=== PATIENT | male | born 1940 | race Caucasian/White ===

== ENCOUNTER 2017-02-28 14:05 | Inpatient (IN) | payer MEDICARE ==
[2017-02-28] MEDS ORDERED: Acetaminophen 325 MG TAB PO PRN (15:09)
[2017-02-28] MEDS ORDERED: Mag-Al Plus 1200 MG/1200 MG/120 MG/30 ML UDCUP PO PRN (15:11)
[2017-02-28] MEDS: Warfarin Sodium 1 MG TAB PO SCH (17:25)
[2017-02-28] MEDS: Pravastatin Sodium 20 MG TAB PO SCH (20:24)
--- NOTE | 2017-03-01 01:47 | HP ---
DATE OF ADMISSION: admitted to [facility] on 02/28/2017. CHIEF COMPLAINT: Weakness. HISTORY OF PRESENT ILLNESS: Patient is a 76-year-old white male who has a history of hypertension, coronary artery disease, for which he underwent a stent in 2004 and severe mitral regurgitation. Mike phelan lives at his home with his and is independent of all his ADLs. Patient had been found to have mitral regurgitation that was severe and this has been monitored gradually, the severity of th e regurgitation increased and he was beginning to have shortness of breath with exertion. Patient h as been followed by his video intern Dr. Elder in [facility] in [place]. Patient was ref erred to cardiothoracic surgeon at [facility] Dr. Colt Willis. The surgeon recommende d that patient undergo a mitral valve replacement for the severe mitral regurgitation from ischemia with degeneration of the P2 leaflet of the valve. Patient was admitted to the hospital at [facility] in [place] on 02/20/2017 and had undergone a heart catheterization and found to have severe 3- vessel disease. Patient was taken to surgery on 02/20/2017 and underwent coronary artery bypass gra fting x3 and mitral valve replacement with a 31 mm Franky-Soto pericardial tissue valve biopr osthetic and ligation of the left atrial appendage. Patient was found to have not only the coronary artery disease, but ischemic mitral regurgitation and myxomatous degeneration of the mitral valve, prolapse of the P2 leaflet. Patient's postop course was complicated by cardiogenic failure, which w as expected and resolved, also by respiratory failure with hypoxemia that resolved and postop anemia requiring transfusion with 1 unit of packed RBCs, 4 units of platelets, and unit of fresh frozen pl asma. Patient had post-op delirium, which resolved and some dysphagia that had resolved. His overa ll course was one of the marked improvement. He required insulin for postop for a while, but he has been gradually weaned from this. He has been back on a regular diet. He has been ambulating short distances, but still very weak. He has not had any trouble with his breathing. Patient has been b rought to [facility] for admission to extended care for his general weakness an d deconditioning. Patient was interviewed along with his , Karly, and daughter Antonia. Patient was able to give me a good history of what had gone on. He is feeling overall much better. PAST HISTORY: Coronary artery disease, status post stents to the RCA x2 in 2004, coronary artery by pass x3 for triple vessel disease with left internal mammary artery to the LAD, saphenous vein graft to the right posterior descending artery and saphenous vein graft to the first diagonal on 02/21/20 17. Severe mitral regurgitation secondary to ischemia with myxomatous degeneration of the mitral va lve, when prolapse of the P2 leaflet, for which he underwent mitral valve replacement with Carpentie r-Soto pericardial tissue valve, bioprosthetic on 02/20/2017, ligation of the left atrial appenda ge on 02/20/2017. Patient also has hypertension, hypercholesterolemia, gastroesophageal reflux dise ase. Patient has had a cholecystectomy in 2001, postop anemia from recent cardiac surgery. Patient has had a colonoscopy that was unremarkable within the last 10 years. PRESENT MEDICINES: Hydrocodone/acetaminophen 5/325 one every 6 hours as needed for pain, acetaminop hen 650 mg every 6 hours as needed, potassium chloride 20 mEq daily, potassium gluconate 99 mg daily , metoprolol succinate 25 mg b.i.d., pantoprazole 40 mg daily, ascorbic acid 1000 mg daily, pravasta tin 40 mg at bedtime, Lasix 40 mg daily x7 days, then reduced to 20 mg daily for 7 days and then dis continue, this regimen was to be started on 02/28/2017, aspirin 81 mg daily, Coumadin 3 mg daily. ALLERGIES: No known allergies. REVIEW OF SYSTEMS: Patient said that he has not had any fever. He does not think his weight has ch anged. His appetite is usually good during this recent hospitalization, he said the appetite really was dependent upon what was served. EYES, EARS, NOSE AND THROAT: No complaint. PULMONARY: No shortness of breath. CARDIOVASCULAR: Patient said he has just a little sore in his anterior chest from his surgery. GASTROINTESTINAL: Patient has been a little constipated. GENITOURINARY: No complaints. MUSCULOSKELETAL: Patient has a little sore on the left leg where the saphenous grafts were taken. NEUROPSYCHIATRIC: Patient said the post-op delirium is all resolved. ADLs: Prior to the surgery, patient was independent of all his ADLs. SOCIAL HISTORY: Patient is and lives with his . He is [place]. HABITS: Alcohol, none. Tobacco, patient stopped smoking in 1966. CODE STATUS: FULL CODE. PHYSICAL EXAMINATION: GENERAL: Shows a very pleasant 76-year-old white male who is alert and oriented x3. VITAL SIGNS: His height is 72 inches, weight 158. His temperature is 99.2, pulse 89, O2 sat 100% o n room air, respirations 20, blood pressure 163/74. HEAD: Normocephalic. EYES: Pupils are equal, round, and reactive. Sclerae nonicteric. EARS: TMs are clear. NOSE: Normal. MOUTH AND THROAT: Normal. NECK: Carotids are equal and strong, no bruits. Thyroid not enlarged. LUNGS: Clear. HEART: Regular rate, no murmurs. CHEST: Anterior chest has a sternal splitting incision that is healing. There is no surrounding re dness. ABDOMEN: Soft with no organomegaly, nor areas of tenderness. EXTREMITIES: No edema. The incisions from the saphenous graft harvesting are healing well. NEUROLOGIC: Patient is alert and oriented x3 with generalized weakness, but no focal weakness. IMPRESSION: 1. Generalized weakness and deconditioning. A. Secondary to hospitalization at [facility] from 02/20/2017 until 02/28/2017 for co ronary artery bypass and mitral valve replacement. 2. Coronary artery disease. A. Status post stent x3 in 2004. B. Status post coronary artery bypass x3 on 02/20/2017 and ligation of the left atrial appendage. 3. Severe ischemic mitral regurgitation with prolapse of the P2 leaflet symptomatic. A. Status post mitral valve replacement with a 31 mm Franky-Soto pericardial tissue valve, bi oprosthetic on 02/20/2017. 4. Hypertension. 5. Postop anemia, status post transfusion with 1 unit of packed RBCs, fresh frozen plasma and plate lets. 6. Hypertension. 7. Hyperlipidemia. PLAN: Patient is admitted to the hospital for physical therapy in an effort to try to improve his g eneral strength, deconditioning and improve his functional capabilities to where he will be back to independent living. We will continue his present medicines. Patient is scheduled to gradually redu ce the furosemide. He is on Coumadin, which is to be continued for 3 months postop that is until 2016. We will recheck CBC, PT/INR, comprehensive metabolic panel in the morning.
[2017-03-01 08:20] LABS: ALT (SGPT) 25 U/L (8-55); AST (SGOT) 21 U/L (5-34); Albumin 3.1 g/dL (3.4-4.8); Alkaline Phosphatase 59 U/L (40-150); Anion Gap 12 mmol/L (10-20); BUN (Urea Nitrogen) 21 mg/dL (8.4-25.7); Bilirubin, Total 0.6 mg/dL (0.2-1.2); Calc. Creatinine Clearance 62 mL/min (70-130); Calcium 8.5 mg/dL (7.8-10.44); Carbon Dioxide 24 mmol/L (23-31); Cardiac Risk 2.4 (Less than 4.5); Chloride 108 mmol/L (98-107); Cholesterol 90 mg/dl (< 200 Desired); Estimated GFR-MDRD 70; Globulin 2.4 g/dL (2.4-3.5); Glucose 106 mg/dL (83-110); HDL Cholesterol 38 mg/dL (>60 Neg Risk); LDL Cholesterol, Calculated 40 mg/dL; Potassium 4.7 mmol/L (3.5-5.1); Protein, Total 5.5 g/dL (5.8-8.1); Sodium 139 mmol/L (136-145); Triglycerides 61 mg/dL (Less than 150)
[2017-03-01 08:23] LABS: #Eosinphils 0.4 thou/uL (0.0-0.7); #Lymphocytes 1.1 thou/uL (1.20-3.40); #Monocytes 0.5 thou/uL (0.11-0.59); #Neutrophils 5.5 thou/uL (1.40-6.50); %Basophils 0.6 % (0.0-1.0); %Eosinophils 5.2 % (0.0-10.0); %Lymphocytes 13.9 % (21.0-51.0); %Monocytes 6.6 % (0.0-10.0); %Neutrophils 73.7 % (42.0-75.0); Hemoglobin 8.9 g/dL (14.0-18.0); Mean Corpuscular HGB CONC 36.4 g/dL (32.0-36.0); Mean Corpuscular Hemoglobin 34.3 pg (27.0-31.0); Mean Corpuscular Volume 94.3 fl (80.0-94.0); Mean Platelet Volume 7.4 fL (7.4-10.4); Platelet Count 211 thou/uL (130-400); RBC Distribution Width 13.6 % (11.5-14.5); Red Blood Cell (RBC) Count 2.61 mill/uL (4.70-6.10); White Blood Cell (WBC) Count 7.5 thou/uL (4.8-10.8)
[2017-03-01] MEDS ORDERED: POTASSIUM GLUCONATE 99 MG PO SCH (09:00)
[2017-03-01] MEDS: Potassium Chloride 20 MEQ TAB PO SCH (09:04)
[2017-03-01] MEDS: Furosemide 20 MG TAB PO SCH (09:05)
[2017-03-01] MEDS: Ascorbic Acid 500 mg Chewable Tablet PO SCH (09:05)
[2017-03-01] MEDS: HYDROcodone/Acetaminophen 5/325 mg Tablet PO PRN (12:51)
[2017-03-01] MEDS: Warfarin Sodium 1 MG TAB PO SCH (16:43)
[2017-03-01] MEDS: Pravastatin Sodium 20 MG TAB PO SCH (20:54)
--- NOTE | 2017-03-02 06:57 | PRG ---
DATE OF SERVICE: 03/01/2017 SUBJECTIVE: Patient said he feels a little more rested today, said he did get up a couple times at night to urinate. He overall is feeling a little better. He ate just a little bit of breakfast, bu t he said he thought he was hungry, just need a lot. He is not having breathing difficulties. Pain seems to be well controlled. OBJECTIVE: The patient is sitting upright in his bed having eaten just small amount of his breakfas t. He appears comfortable and not in any distress. His vital signs shows a temperature of 98.7, pu lse 68, respirations 18, O2 sat 96% on room air, blood pressure 113/71. Lungs have some rales at th e bases that are coarse, probably from atelectasis. Remainder of the upper portion of the posterior lungs and anterior chest were all clear. Heart, regular rate. Extremities, no edema. LABORATORY DATA: Lab shows an H\T\H of 8.9 and 24.6, white cell count 7500 with 74% segs, 14% lymph ocytes, and platelet count of 211,000. Sodium 139, potassium 4.7, BUN 21, creatinine 1.03. GFR 70, glucose 114 this morning. His serum albumin 3.1. Cholesterol 90, triglycerides 61, LDL 40, HDL 38 , hemoglobin A1c is 5. ASSESSMENT: 1. Generalized weakness and deconditioning. A. Secondary to hospitalization at [facility] in [place] from 02/20/2017 until 02/28/2017 for coronary artery bypass and mitral valve replacement. B. a little improved as and not as tired as of 03/01/2017. 2. Coronary artery disease. A. Status post stent x3 in 2004. B. Status post coronary artery bypass x3 on 02/20/2017 and ligation of the left atrial appendag e. 3. Severe ischemic mitral regurgitation with prolapse of the P2 leaflet symptomatic. A. Status post mitral valve replacement with a 31 mm Franky-Soto pericardial tissue valv e, bioprosthetic on 02/20/2017. 4. Hypertension. A. Well-controlled as of 03/01/2017. 5. Postop anemia, status post transfusion with 1 unit of packed RBCs, fresh frozen plasma and plate lets. A. Hemoglobin 8.9 as of 03/01/2017 6. Hypertension. 7. Hyperlipidemia. A. Well-controlled as of 03/01/2017. PLAN: Patient has no evidence of any diabetes. Hemoglobin A1c was 5. Physical therapy will be wor stacy with the patient, encouraged him to get up for all of his meals since been a little more time o ut of bed using incentive spirometry at least 4 times a day. Continue present medicines.
[2017-03-02] MEDS: Furosemide 20 MG TAB PO SCH (08:22)
[2017-03-02] MEDS: Potassium Chloride 20 MEQ TAB PO SCH (08:22)
[2017-03-02] MEDS: Ascorbic Acid 500 mg Chewable Tablet PO SCH (08:23)
[2017-03-02] MEDS: HYDROcodone/Acetaminophen 5/325 mg Tablet PO PRN ×2 (10:50→17:14)
--- NOTE | 2017-03-02 13:48 | PRG ---
DATE OF SERVICE: 03/02/2017 SUBJECTIVE: The patient said he had a pretty good night. Yesterday, he walked a couple of times in the hallways. He was little tired afterward. He has had no trouble with his breathing. He says, he feels a little better today. OBJECTIVE: GENERAL: The patient is alert and oriented x3, appears very comfortable, in no distress. VITAL SIGNS: His temperature is 98.5, pulse 78, respirations 18, O2 saturation 98% on room air, blo od pressure 124/54. LUNGS: Clear. HEART: Regular rate. External incision healing well. EXTREMITIES: No edema. FBS yesterday morning, fasting 114, before supper was 125. This morning's is pending. ASSESSMENT: 1. Generalized weakness and deconditioning. A. Secondary to hospitalization at [facility] from 02/20/2017 until 02/28/2017 for coronary artery bypass and mitral valve replacement. B. Improved as of 03/02/2017. 2. Coronary artery disease. A. Status post stent x3 in 2004. B. Status post coronary artery bypass x3 on 02/20/2017 and ligation of the left atrial appendag e. 3. Severe ischemic mitral regurgitation with prolapse of the P2 leaflet symptomatic. A. Status post mitral valve replacement with a 31 mm Franky-Soto pericardial tissue valv e, bioprosthetic on 02/20/2017. 4. Hypertension. A. Controlled as of 03/02/2017. 5. Postop anemia, status post transfusion with 1 unit of packed RBCs, fresh frozen plasma and plate lets. A. Hemoglobin 8.9 as of 03/01/2017. 6. Hyperlipidemia. PLAN: Continue present care. Continue physical therapy.
[2017-03-02] MEDS: Warfarin Sodium 1 MG TAB PO SCH (17:08)
[2017-03-02] MEDS: Docusate 100 MG CAP PO SCH (18:07)
[2017-03-02] MEDS: Pravastatin Sodium 20 MG TAB PO SCH (21:08)
[2017-03-03 07:49] LABS: #Eosinphils 0.3 thou/uL (0.0-0.7); #Lymphocytes 1.2 thou/uL (1.20-3.40); #Monocytes 0.5 thou/uL (0.11-0.59); #Neutrophils 6.1 thou/uL (1.40-6.50); %Basophils 0.6 % (0.0-1.0); %Eosinophils 3.9 % (0.0-10.0); %Lymphocytes 14.8 % (21.0-51.0); %Monocytes 6.3 % (0.0-10.0); %Neutrophils 74.5 % (42.0-75.0); Hemoglobin 9.7 g/dL (14.0-18.0); Mean Corpuscular HGB CONC 35.4 g/dL (32.0-36.0); Mean Corpuscular Volume 93.2 fl (80.0-94.0); Mean Platelet Volume 6.6 fL (7.4-10.4); Platelet Count 289 thou/uL (130-400); RBC Distribution Width 13.6 % (11.5-14.5); Red Blood Cell (RBC) Count 2.94 mill/uL (4.70-6.10); White Blood Cell (WBC) Count 8.2 thou/uL (4.8-10.8)
[2017-03-03 07:55] LABS: Prothrombin Time 22.4 SEC (12.0-14.7)
[2017-03-03] MEDS: Ascorbic Acid 500 mg Chewable Tablet PO SCH (08:51)
[2017-03-03] MEDS: Furosemide 20 MG TAB PO SCH (08:51)
[2017-03-03] MEDS: Potassium Chloride 20 MEQ TAB PO SCH (08:51)
--- NOTE | 2017-03-03 09:59 | PRG ---
DATE OF SERVICE: 03/03/2017 SUBJECTIVE: The patient said he is feeling better, slept good last night, has little soreness, cinthya le tightness in the anterior chest, otherwise he thinks he is doing good, looking forward to [facility]. Appetite is improving. OBJECTIVE: GENERAL APPEARANCE: The patient is sitting up in a bedside chair. He is alert and oriented x3. Lo oks very comfortable. VITAL SIGNS: Temperature 98.4, pulse 79, respirations 20, O2 sat on room air 96%, and blood pressur e 113/55. FBS 108. LUNGS: Clear. HEART: Regular rate. Sternal incision is healing. No drainage or surrounding redness. LABORATORY DATA: His H\T\H is 9.7 and 27.4. White cell count 8200 with 75% segs, 15% lymphocytes, and platelet count of 289,000. His INR is 2.0. ASSESSMENT: 1. Generalized weakness and deconditioning. A. Secondary to hospitalization at [facility] from 02/20/2017 until 02/28/2017 for coronary artery bypass and mitral valve replacement. B. Improved as of 03/03/2017. 2. Coronary artery disease. A. Status post stent x3 in 2004. B. Status post coronary artery bypass x3 on 02/20/2017 and ligation of the left atrial appendag e. 3. Severe ischemic mitral regurgitation with prolapse of the P2 leaflet symptomatic. A. Status post mitral valve replacement with a 31 mm Franky-Soto pericardial tissue valv e, bioprosthetic on 02/20/2017. 4. Hypertension. A. Controlled as of 03/03/2017. 5. Postop anemia, status post transfusion with 1 unit of packed RBCs, fresh frozen plasma and plate lets. A. Hemoglobin 9.7 as of 03/03/2017. 6. Hyperlipidemia. PLAN: Continue present care. Continue physical therapy.
[2017-03-03] MEDS: Warfarin Sodium 1 MG TAB PO SCH (17:17)
[2017-03-03] MEDS ORDERED: Milk Of Magnesia 30 ML UDCUP PO SCH (20:45)
[2017-03-03] MEDS: Pravastatin Sodium 20 MG TAB PO SCH (20:51)
[2017-03-04] MEDS ORDERED: Bisacodyl 10 MG SUPP PR PRN (08:15)
[2017-03-04] MEDS: Furosemide 20 MG TAB PO SCH (09:25)
[2017-03-04] MEDS: Ascorbic Acid 500 mg Chewable Tablet PO SCH (09:25)
[2017-03-04] MEDS: Polyethylene Glycol 3350 17 GM Packet PO SCH (09:25)
[2017-03-04] MEDS: Docusate 100 MG CAP PO SCH (09:25)
[2017-03-04] MEDS: Potassium Chloride 20 MEQ TAB PO SCH (09:25)
--- NOTE | 2017-03-04 09:34 | PRG ---
DATE OF SERVICE: 03/04/2017 SUBJECTIVE: The patient said he is doing fine. He said he has had some trouble though with his bow els. He said he has not had a bowel movement for several days. He said he was given Milk of Magnes ia last night and this morning he was started on MiraLax. He said he did have a bowel movement this morning and stools were hard and small. He said he had to force this movement. He has not had any shortness of breath or chest pain and his therapy has been going well. OBJECTIVE: The patient is lying in bed. He looks very comfortable, in no distress. His temp is 98 .7, pulse 76, respirations 20, O2 sat 95% on room air, blood pressure 119/59. Lungs are clear. Hea rt, regular rate. Extremities, no edema. ASSESSMENT: 1. Generalized weakness and deconditioning. A. Secondary to hospitalization at [facility] in [place] from 02/20/2017 until 02/28/2017 for coronary artery bypass and mitral valve replacement. B. Improved as of 03/04/2017. 2. Coronary artery disease. A. Status post stent x3 in 2004. B. Status post coronary artery bypass x3 on 02/20/2017 and ligation of the left atrial appendag e. 3. Severe ischemic mitral regurgitation with prolapse of the P2 leaflet symptomatic. A. Status post mitral valve replacement with a 31 mm Franky-Soto pericardial tissue valv e, bioprosthetic on 02/20/2017. 4. Hypertension. A. Controlled as of 03/04/2017. 5. Postop anemia, status post transfusion with 1 unit of packed RBCs, fresh frozen plasma and plate lets. A. Hemoglobin 9.7 as of 03/03/2017. 6. Hyperlipidemia. 7. Constipation. PLAN: Continue present care. Continue physical therapy. MiraLax 17 grams in 8 ounces of water has been started daily, will also order Dulcolax suppository if needed.
[2017-03-04] MEDS: Warfarin Sodium 1 MG TAB PO SCH (17:44)
[2017-03-04] MEDS: Pravastatin Sodium 20 MG TAB PO SCH (20:55)
[2017-03-05 05:09] LABS: #Eosinphils 0.3 thou/uL (0.0-0.7); #Lymphocytes 1.2 thou/uL (1.20-3.40); #Monocytes 0.5 thou/uL (0.11-0.59); #Neutrophils 5.5 thou/uL (1.40-6.50); %Basophils 0.4 % (0.0-1.0); %Eosinophils 3.9 % (0.0-10.0); %Monocytes 6.7 % (0.0-10.0); Mean Corpuscular HGB CONC 34.2 g/dL (32.0-36.0); Mean Corpuscular Hemoglobin 31.7 pg (27.0-31.0); Mean Corpuscular Volume 92.8 fl (80.0-94.0); Mean Platelet Volume 6.9 fL (7.4-10.4); Platelet Count 320 thou/uL (130-400); RBC Distribution Width 13.5 % (11.5-14.5); Red Blood Cell (RBC) Count 3.15 mill/uL (4.70-6.10); White Blood Cell (WBC) Count 7.6 thou/uL (4.8-10.8)
[2017-03-05 05:15] LABS: INR-International Normal Ratio 1.6; Prothrombin Time 18.9 SEC (12.0-14.7)
[2017-03-05 05:23] LABS: Anion Gap 14 mmol/L (10-20); BUN (Urea Nitrogen) 27 mg/dL (8.4-25.7); Calc. Creatinine Clearance 65 mL/min (70-130); Calcium 8.8 mg/dL (7.8-10.44); Carbon Dioxide 24 mmol/L (23-31); Chloride 105 mmol/L (98-107); Estimated GFR-MDRD 74; Glucose 110 mg/dL (83-110); Potassium 4.2 mmol/L (3.5-5.1); Sodium 139 mmol/L (136-145)
[2017-03-05] MEDS: Ascorbic Acid 500 mg Chewable Tablet PO SCH (08:49)
[2017-03-05] MEDS: Furosemide 20 MG TAB PO SCH (08:50)
[2017-03-05] MEDS: Potassium Chloride 20 MEQ TAB PO SCH (08:50)
[2017-03-05] MEDS: Polyethylene Glycol 3350 17 GM Packet PO SCH (08:51)
[2017-03-05] MEDS: HYDROcodone/Acetaminophen 5/325 mg Tablet PO PRN ×2 (08:56→16:30)
--- NOTE | 2017-03-05 09:51 | PRG ---
DATE OF SERVICE: 03/05/2017 SUBJECTIVE: The patient said he is doing better with his therapy. He is walking a little further, getting up easier on his own. The appetite is coming back. He said is a little sore through the an terior chest, otherwise doing well. OBJECTIVE: The patient is lying in bed, was able to get up in a chair on his own. 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 Lungs are clear. Heart, regular rate . Incision healing well. Extremities; no edema. His lab shows an H\T\H of 10 and 29.3, WBC count 7600 with 73% segs, 16% lymphocytes, and platelet c ount of 320,000. Sodium 139, potassium 4.2, BUN 27, creatinine 0.98, glucose 110. INR 1.6. ASSESSMENT: 1. Generalized weakness and deconditioning. A. Secondary to hospitalization at [facility] from 02/20/2017 until 02/28/2017 for coronary artery bypass and mitral valve replacement. B. Improved as of 03/05/2017. 2. Coronary artery disease. A. Status post stent x3 in 2004. B. Status post coronary artery bypass x3 on 02/20/2017 and ligation of the left atrial appendag e. 3. Severe ischemic mitral regurgitation with prolapse of the P2 leaflet symptomatic. A. Status post mitral valve replacement with a 31 mm Franky-Soto pericardial tissue valv e, bioprosthetic on 02/20/2017. 4. Hypertension. A. Controlled as of 03/04/2017. 5. Postop anemia, status post transfusion with 1 unit of packed RBCs, fresh frozen plasma and plate lets. A. Hemoglobin up to 10.0 as of 03/05/2017. 6. Hyperlipidemia. 7. Constipation. PLAN: The patient's strength is gradually improving. His appetite is improving. Weight is stable. His constipation seems to be controlled. His INR dropped a little bit. He is presently on Coumad in 3 mg a day. We will increase his Coumadin to 5 mg on Wednesdays and Saturdays, he will remain on 3 mg the other 5 days. We will continue to monitor PT and INR.
[2017-03-05] MEDS ORDERED: Warfarin Sodium 5 MG TAB PO SCH (17:00)
[2017-03-05] MEDS: Pravastatin Sodium 20 MG TAB PO SCH (20:31)
[2017-03-06 05:15] LABS: INR-International Normal Ratio 1.6; Prothrombin Time 19.1 SEC (12.0-14.7)
[2017-03-06] MEDS: Ascorbic Acid 500 mg Chewable Tablet PO SCH (08:56)
[2017-03-06] MEDS: Furosemide 20 MG TAB PO SCH (08:56)
[2017-03-06] MEDS: Potassium Chloride 20 MEQ TAB PO SCH (08:57)
[2017-03-06] MEDS: Polyethylene Glycol 3350 17 GM Packet PO SCH (08:57)
--- NOTE | 2017-03-06 10:18 | PRG ---
DATE OF SERVICE: 03/06/2017 SUBJECTIVE: The patient is doing better. He is doing more on physical therapy. He is not having b reathing trouble. Chest feels good. He was asking for a regular diet, but no added salt, so he can have his juárez and sugar. OBJECTIVE: GENERAL APPEARANCE: The patient is sitting up in a bedside chair. He is alert and appears in no di stress. VITAL SIGNS: Temperature 98.6, pulse 76, respirations 18, O2 sat 96%, and blood pressure 110/56. LUNGS: Clear. HEART: Regular rate. EXTREMITIES: No edema. LABORATORY DATA: His INR is 1.6. ASSESSMENT: 1. Generalized weakness and deconditioning. A. Secondary to hospitalization at [facility] from 02/20/2017 until 02/28/2017 for coronary artery bypass and mitral valve replacement. B. Improved as of 03/06/2017. 2. Coronary artery disease. A. Status post stent x3 in 2004. B. Status post coronary artery bypass x3 on 02/20/2017 and ligation of the left atrial appendag e. 3. Severe ischemic mitral regurgitation with prolapse of the P2 leaflet symptomatic. A. Status post mitral valve replacement with a 31 mm Franky-Soto pericardial tissue valv e, bioprosthetic on 02/20/2017. 4. Hypertension. A. Controlled as of 03/06/2017. 5. Postop anemia, status post transfusion with 1 unit of packed RBCs, fresh frozen plasma and plate lets. A. Hemoglobin up to 10.0 as of 03/05/2017. 6. Hyperlipidemia. 7. Constipation. A. Controlled as of 03/06/2017. PLAN: Continue physical therapy. We will place patient on a regular diet, no added salt. His INR is not therapeutic. We will increase his Coumadin to 5 mg on Friday, , Friday, and y and 3 mg on MDF. Recheck PT/INR in the morning. The patient tentatively looking to go home [facility].
[2017-03-06] MEDS ORDERED: Acetaminophen 325 MG TAB PO PRN (12:51)
[2017-03-06] MEDS ORDERED: Warfarin Sodium 5 MG TAB PO SCH (17:00)
[2017-03-06] MEDS ORDERED: Warfarin Sodium 1 MG TAB PO SCH (17:00)
[2017-03-06] MEDS: Pravastatin Sodium 20 MG TAB PO SCH (21:24)
[2017-03-07 07:49] LABS: INR-International Normal Ratio 1.6; Prothrombin Time 19.3 SEC (12.0-14.7)
--- NOTE | 2017-03-07 10:26 | PRG ---
DATE OF SERVICE: 03/07/2017 SUBJECTIVE: The patient said he is doing better, had a good night. He is just sore in the muscles of the left upper anterior chest. He is using a moist heat on the anterior chest in that area, it d oes seem to help. The patient and his talked about going home and starting outpatient surgery versus continuing inpatient physical therapy. At this time they are most comfortable staying within patient surgery at least for a few more days. OBJECTIVE: The patient is sitting up in the bedside chair. He is alert and appears very comfortabl e and in no distress. His temperature is 97.5, pulse 96, respirations 16, O2 sat 76% on room air, b lood pressure 119/63. His lungs are clear. Heart, regular rate. Anterior sternal incision healing well. The patient is a little sore to palpation in the left pectoralis major muscle. Extremities, no edema. His INR is still 1.6. ASSESSMENT: 1. Generalized weakness and deconditioning. A. Secondary to hospitalization at [facility] from 02/20/2017 until 02/28/2017 for coronary artery bypass and mitral valve replacement. B. Improved as of 03/07/2017. 2. Coronary artery disease. A. Status post stent x3 in 2004. B. Status post coronary artery bypass x3 on 02/20/2017 and ligation of the left atrial appendag e. 1. Healing well as of 03/07/2017. 3. Severe ischemic mitral regurgitation with prolapse of the P2 leaflet symptomatic. A. Status post mitral valve replacement with a 31 mm Franky-Soto pericardial tissue valv e, bioprosthetic on 02/20/2017. 4. Hypertension. A. Controlled as of 03/07/2017. 5. Postop anemia, status post transfusion with 1 unit of packed RBCs, fresh frozen plasma and plate lets. A. Hemoglobin up to 10.0 as of 03/05/2017. 6. Hyperlipidemia. 7. Constipation. A. Controlled as of 03/06/2017. PLAN: The patient's INR is still not therapeutic. We will increase his Coumadin to 5 mg daily, and continue to check on the PT/INR. Continue physical therapy. The patient due to see his Cardiologi stDr. Elder at [facility] in [place] on Friday03/11/2017 and move discharge to [facility] 03/12/2017.
[2017-03-07] MEDS: Furosemide 20 MG TAB PO SCH (10:44)
[2017-03-07] MEDS: Ascorbic Acid 500 mg Chewable Tablet PO SCH (10:44)
[2017-03-07] MEDS: Polyethylene Glycol 3350 17 GM Packet PO SCH (10:45)
[2017-03-07] MEDS: Potassium Chloride 20 MEQ TAB PO SCH (10:45)
[2017-03-07] MEDS ORDERED: Warfarin Sodium 1 MG TAB PO SCH (17:00)
[2017-03-07] MEDS: Warfarin Sodium 5 MG TAB PO SCH (17:16)
[2017-03-07] MEDS: HYDROcodone/Acetaminophen 5/325 mg Tablet PO PRN (17:17)
[2017-03-07] MEDS: Pravastatin Sodium 20 MG TAB PO SCH (20:46)
[2017-03-08 07:42] LABS: INR-International Normal Ratio 1.9; Prothrombin Time 21.7 SEC (12.0-14.7)
[2017-03-08] MEDS: Furosemide 20 MG TAB PO SCH (09:36)
[2017-03-08] MEDS: Polyethylene Glycol 3350 17 GM Packet PO SCH (09:36)
[2017-03-08] MEDS: Ascorbic Acid 500 mg Chewable Tablet PO SCH (09:36)
[2017-03-08] MEDS: Potassium Chloride 20 MEQ TAB PO SCH (09:37)
[2017-03-08] MEDS: Warfarin Sodium 5 MG TAB PO SCH (17:20)
[2017-03-08] MEDS: Pravastatin Sodium 20 MG TAB PO SCH (20:40)
[2017-03-08] MEDS: HYDROcodone/Acetaminophen 5/325 mg Tablet PO PRN (20:41)
[2017-03-09] MEDS: Potassium Chloride 20 MEQ TAB PO SCH (08:59)
[2017-03-09] MEDS: Ascorbic Acid 500 mg Chewable Tablet PO SCH (08:59)
[2017-03-09] MEDS: Polyethylene Glycol 3350 17 GM Packet PO SCH (09:01)
[2017-03-09] MEDS: Furosemide 20 MG TAB PO SCH (09:03)
--- NOTE | 2017-03-09 14:12 | PRG ---
DATE OF SERVICE: 03/09/2017 SUBJECTIVE: The patient said he is doing good. He is walking more. He is to transfer on [facility]. He has asked for a pass this morning, so he can go to [facility]. OBJECTIVE: GENERAL: The patient is sitting up in a bedside chair, he is alert and appears very comfortable and in no distress. VITAL SIGNS: Shows a temperature of 98.4, pulse 78, respirations 17. His O2 sat 98% on room air, b lood pressure 121/65. LUNGS: Clear. HEART: Regular rate. EXTREMITIES: No edema. LABORATORY DATA: His INR yesterday was 1.9. ASSESSMENT: 1. Generalized weakness and deconditioning. A. Secondary to hospitalization at [facility] from 02/20/2017 until 02/28/2017 for coronary artery bypass and mitral valve replacement. B. Improved as of 03/09/2017. 2. Coronary artery disease. A. Status post stent x3 in 2004. B. Status post coronary artery bypass x3 on 02/20/2017 and ligation of the left atrial appendag e. 1. Healing well as of 03/09/2017. 3. Severe ischemic mitral regurgitation with prolapse of the P2 leaflet symptomatic. A. Status post mitral valve replacement with a 31 mm Franky-Soto pericardial tissue valv e, bioprosthetic on 02/20/2017. 4. Hypertension. A. Controlled as of 03/09/2017. 5. Postop anemia, status post transfusion with 1 unit of packed RBCs, fresh frozen plasma and plate lets. A. Hemoglobin up to 10.0 as of 03/05/2017. 6. Hyperlipidemia. 7. Constipation. A. Controlled as of 03/09/2017. PLAN: The patient's INR is coming back to therapeutic at 1.9 yesterday. We will recheck this tomor row. Patient's furosemide per supportability engineer's instructions reduced to 20 mg daily. Continue physica l therapy.
[2017-03-09] MEDS: Warfarin Sodium 5 MG TAB PO SCH (17:22)
[2017-03-09] MEDS: Pravastatin Sodium 20 MG TAB PO SCH (20:24)
[2017-03-10 06:37] LABS: #Basophils 0.1 thou/uL (0.0-0.2); #Eosinphils 0.3 thou/uL (0.0-0.7); #Lymphocytes 1.4 thou/uL (1.20-3.40); #Monocytes 0.5 thou/uL (0.11-0.59); #Neutrophils 3.3 thou/uL (1.40-6.50); %Basophils 1.2 % (0.0-1.0); %Eosinophils 5.4 % (0.0-10.0); %Lymphocytes 24.7 % (21.0-51.0); %Monocytes 9.4 % (0.0-10.0); %Neutrophils 59.2 % (42.0-75.0); Hemoglobin 10.9 g/dL (14.0-18.0); Mean Corpuscular HGB CONC 35.8 g/dL (32.0-36.0); Mean Corpuscular Hemoglobin 32.5 pg (27.0-31.0); Mean Corpuscular Volume 90.8 fl (80.0-94.0); Mean Platelet Volume 6.3 fL (7.4-10.4); Platelet Count 293 thou/uL (130-400); RBC Distribution Width 13.1 % (11.5-14.5); Red Blood Cell (RBC) Count 3.36 mill/uL (4.70-6.10); White Blood Cell (WBC) Count 5.6 thou/uL (4.8-10.8)
[2017-03-10 06:45] LABS: Anion Gap 12 mmol/L (10-20); BUN (Urea Nitrogen) 25 mg/dL (8.4-25.7); Calc. Creatinine Clearance 59 mL/min (70-130); Carbon Dioxide 25 mmol/L (23-31); Chloride 109 mmol/L (98-107); Estimated GFR-MDRD 66; Glucose 106 mg/dL (83-110); Potassium 4.5 mmol/L (3.5-5.1); Sodium 141 mmol/L (136-145)
[2017-03-10 06:48] LABS: INR-International Normal Ratio 2.2; Prothrombin Time 24.1 SEC (12.0-14.7)
[2017-03-10] MEDS: Furosemide 20 MG TAB PO SCH (08:54)
[2017-03-10] MEDS: Ascorbic Acid 500 mg Chewable Tablet PO SCH (08:54)
[2017-03-10] MEDS: Potassium Chloride 20 MEQ TAB PO SCH (08:54)
[2017-03-10] MEDS: Polyethylene Glycol 3350 17 GM Packet PO SCH (08:55)
--- NOTE | 2017-03-10 09:10 | PRG ---
DATE OF SERVICE: 03/10/2017 SUBJECTIVE: The patient said he is a little tired today. Yesterday he had taken a pass and gone to spiritism, left spiritism early because he was pretty fatigued with the increased activity. OBJECTIVE: GENERAL APPEARANCE: The patient is sitting up in a chair, appears in no distress. VITAL SIGNS: Shows temperature 98.7, pulse 76, respirations 16, O2 sat 95% on room air, and blood p ressure 122/60. LUNGS: Clear. HEART: Regular rate. EXTREMITIES: No edema. LABORATORY DATA: Shows an H\T\H of 10.9 and 30.5, white cell count 5600 with 59% segs, 25% lymphocy deborah, and platelet count of 293,000. Sodium 141, potassium 4.5, BUN 25, creatinine 1.09, GFR is 66, glucose 106. INR 2.2. ASSESSMENT: 1. Generalized weakness and deconditioning. A. Secondary to hospitalization at [facility] from 02/20/2017 until 02/28/2017 for coronary artery bypass and mitral valve replacement. B. Improved as of 03/10/2017. 2. Coronary artery disease. A. Status post stent x3 in 2004. B. Status post coronary artery bypass x3 on 02/20/2017 and ligation of the left atrial appendag e. 1. Healing well as of 03/10/2017. 3. Severe ischemic mitral regurgitation with prolapse of the P2 leaflet symptomatic. A. Status post mitral valve replacement with a 31 mm Franky-Soto pericardial tissue valv e, bioprosthetic on 02/20/2017. 4. Hypertension. A. Controlled as of 03/10/2017. 5. Postop anemia, status post transfusion with 1 unit of packed RBCs, fresh frozen plasma and plate lets. A. Hemoglobin up to 10.9 as of 03/10/2017. 6. Hyperlipidemia. 7. Constipation. A. Controlled as of 03/10/2017. PLAN: Patient's INR is now therapeutic. He is making gradual progress with his therapy. Tomorrow he will be given a pass to go see his conference planner in [place], Dr. Elder. There will have a repeat echo cardiogram. He overall is feeling better and targeting a probable discharge on Friday, 7.
[2017-03-10] MEDS: Warfarin Sodium 5 MG TAB PO SCH (17:05)
[2017-03-10] MEDS: Pravastatin Sodium 20 MG TAB PO SCH (20:34)
[2017-03-11 03:18] VITALS: BMI 20.9
[2017-03-11] MEDS: Potassium Chloride 20 MEQ TAB PO SCH (08:41)
[2017-03-11] MEDS: Furosemide 20 MG TAB PO SCH (08:42)
[2017-03-11] MEDS: Polyethylene Glycol 3350 17 GM Packet PO SCH (08:42)
[2017-03-11] MEDS: Ascorbic Acid 500 mg Chewable Tablet PO SCH (08:42)
--- NOTE | 2017-03-11 11:27 | PRG ---
DATE OF SERVICE: 03/11/2017 SUBJECTIVE: The patient said he is doing good this morning. 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 He is anticipating discharge tomorrow. Overall, he thinks he is doing good. OBJECTIVE: The patient is lying in bed, he is alert, appears comfortable, in no distress. His temp 97.7, pulse 73, respirations 16, O2 saturation 97%, blood pressure 111/67. Lungs are clear. Heart , regular rate. Extremities, no edema. ASSESSMENT: 1. Generalized weakness and deconditioning. A. Secondary to hospitalization at [facility] in [place] from 02/20/2017 until 02/28/2017 for coronary artery bypass and mitral valve replacement. B. Improved as of 03/11/2017. 2. Coronary artery disease. A. Status post stent x3 in 2004. B. Status post coronary artery bypass x3 on 02/20/2017 and ligation of the left atrial appendag e. 1. Healing well as of 03/11/2017. 3. Severe ischemic mitral regurgitation with prolapse of the P2 leaflet symptomatic. A. Status post mitral valve replacement with a 31 mm Franky-Soto pericardial tissue valv e, bioprosthetic on 02/20/2017. 4. Hypertension. A. Controlled as of 03/11/2017. 5. Postop anemia, status post transfusion with 1 unit of packed RBCs, fresh frozen plasma and plate lets. A. Hemoglobin up to 10.9 as of 03/10/2017. 6. Hyperlipidemia. 7. Constipation. A. Controlled as of 03/10/2017. PLAN: Continue physical therapy. 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 Anticipate discharge tomorrow. We will continue physical therapy today and tomorrow and then will arrange for outpatient.
[2017-03-11] MEDS: Warfarin Sodium 5 MG TAB PO SCH (17:13)
[2017-03-11] MEDS: Pravastatin Sodium 20 MG TAB PO SCH (20:34)
[2017-03-12] MEDS: Furosemide 20 MG TAB PO SCH (08:29)
[2017-03-12] MEDS: Ascorbic Acid 500 mg Chewable Tablet PO SCH (08:29)
[2017-03-12] MEDS: Polyethylene Glycol 3350 17 GM Packet PO SCH (08:30)
[2017-03-12] MEDS: Potassium Chloride 20 MEQ TAB PO SCH (08:30)
--- NOTE | 2017-03-12 09:16 | DIS ---
FINAL DIAGNOSES: 1. Generalized weakness and deconditioning. A. Secondary to hospitalization at [facility] in [place] from 02/20/2017 until 02/28/2017 for coronary artery bypass and mitral valve replacement. B. Continued improvement as of 03/12/2017. 2. Coronary artery disease. A. Status post stent x3 in 2004. B. Status post coronary artery bypass x3 on 02/20/2017 and ligation of the left atrial appendag e. 1. Healing well as of 03/12/2017. 3. Severe ischemic mitral regurgitation with prolapse of the P2 leaflet symptomatic. A. Status post mitral valve replacement with a 31 mm Franky-Soto pericardial tissue valv e, bioprosthetic on 02/20/2017. 4. Hypertension. A. Controlled as of 03/12/2017. 5. Postop anemia, status post transfusion with 1 unit of packed RBCs, fresh frozen plasma and plate lets. A. Hemoglobin up to 10.9 as of 03/10/2017. 6. Hyperlipidemia. 7. Constipation. A. Controlled as of 03/10/2017. REASON FOR ADMISSION: The patient is a 76-year-old white male who has a history of hypertension, co ronary artery disease for which he underwent a stent in 2004 and has severe mitral regurgitation. T his had progressively become symptomatic with some shortness of breath with exertion. His cardiolog ist is Dr. Elder of [place] has been following him and has seen further and progressive severi ty of the upper mitral regurgitation. He was referred to Dr. Colt Willis, cardiovascular s urgeon at [facility] and his further evaluation showed severe mitral regurgitation fr om ischemia with degeneration of the P2 leaflet of the valve. The patient was hospitalized at [facility] and on 02/20/2017 he underwent heart catheterization and was found to have severe 3-vesse l disease. As a consequence, he underwent a bypass grafting x3 and a mitral valve replacement with a 31 mm Arceo-Soto pericardial tissue valve bioprosthetic and ligation of the left atrial jorgito endage. The patient's postop course was complicated by some cardiogenic failure which was expected that resolved and respiratory failure with hypoxemia that quickly resolved. He had a postop anemia that required transfusion of 4 units of packed RBCs. The patient had immediate postoperative deliri um that resolved and some mild dysphagia which resolved. He was discharged and transferred to [facility] on 02/28/2017, admitted for a nursing home facility for continued physic al therapy. HOSPITAL COURSE: The patient's hospital course has been one of gradual progressive improvement. He has worked with physical therapy and has made excellent progress. He has been walking up to 275 fe et twice a day. He is transferring independently. His lungs have remained clear. His postop anemi a, has improved. His last hemoglobin on 03/10/2017 was 10.9 with a platelet count of 293,000. His sodium on 03/10/2017 was 141, potassium 4.5, BUN 25, creatinine 1.09 with a GFR of 66 and glucose 10 6. He has been placed on Coumadin for a 3 month, postop period and then this will be stopped. His Coumadin was adjusted requiring 5 mg daily, his PT/INR on 03/10/2017 was 2.2, for 03/12/2017 is pend ing. His furosemide initially was started at 40 mg a day and after a week this was reduced to 20 mg and after another 2 weeks this will be stopped. He has not required any of his pain medication oth er than Tylenol. He had some trouble with constipation that was managed with MiraLax. His conditio n was one of great progress. He was evaluated at [facility] as an outpatient on 03/11/2017 wit h an echocardiogram, chest x-ray and lab studies and will be seen next week by his ruby rails developer to r eview these studies. By 03/12/2017 his condition was doing very well and was such that it is felt t hat he can now be managed at home. We will arrange for him to undergo outpatient physical therapy. DISPOSITION: DIET: Regular diet, no added salt. ACTIVITIES: Gradually increase activities. Encouraged him to walk. We will arrange for outpatient physical therapy. Weight restriction less than 20 pounds for the first 6 weeks postop. MEDICATIONS: Acetaminophen 325 mg 2 q.i.d. as needed for pain, ascorbic acid 1000 mg daily, aspirin 81 mg daily, furosemide 20 mg daily for 1 week, then stop. MiraLax 17 grams in 8 ounces of water d aily, metoprolol succinate 25 mg b.i.d., pantoprazole 40 mg daily, pravastatin 40 mg at bedtime, war farin 5 mg daily. FOLLOW UP: Lab on Friday03/17/2017, PT/INR. Will see the patient in my office in 2 weeks with a CBC and basic metabolic panel. We will follow PT/INR weekly. The patient will be seeing his cardio logist, Dr. Elder at [facility] in [place] in 1 week and the patient will be seeing his c ardiovascular surgeon in the next couple of weeks. CODE STATUS: Full.
[2017-03-12 11:23] VITALS: BP 135/63; TEMP 98.1
[2017-03-12 13:28] LABS: INR-International Normal Ratio 2.6; Prothrombin Time 27.4 SEC (12.0-14.7)
== END 2017-03-12 13:15 | disposition home or self-care (01) | DRG 948 ==
LOC: MADMS 14:05
PROVIDERS: ADMIT Family Medicine; ATTEND Family Medicine
DX: R53.1 Weakness (principal); I34.0 Nonrheumatic mitral (valve) insufficiency; D62 Acute posthemorrhagic anemia; I25.10 Atherosclerotic heart disease of native coronary artery without angina pectoris; I10 Essential (primary) hypertension; Z95.5 Presence of coronary angioplasty implant and graft; Z95.2 Presence of prosthetic heart valve; Z95.1 Presence of aortocoronary bypass graft; E78.00 Pure hypercholesterolemia, unspecified; K21.9 Gastro-esophageal reflux disease without esophagitis; Z87.891 Personal history of nicotine dependence; K59.00 Constipation, unspecified
CPT/HCPCS: 36415; 36416; 80048; 80053; 80061; 83036; 85025; 85610; G8978-GP-CK; G8979-GP-CI

== ENCOUNTER 2017-03-17 14:01 | Outpatient (CLI) | payer MEDICARE ==
[2017-03-17 14:25] LABS: INR-International Normal Ratio 1.8
== END 2017-03-17 14:02 | disposition home or self-care (01) ==
LOC: MADLAB 14:01
PROVIDERS: ATTEND Family Medicine
DX: Z51.81 Encounter for therapeutic drug level monitoring (principal); I34.0 Nonrheumatic mitral (valve) insufficiency; Z79.01 Long term (current) use of anticoagulants
CPT/HCPCS: 36415; 85610

== ENCOUNTER 2017-03-24 11:26 | Outpatient (CLI) | payer MEDICARE, OTHER ==
[2017-03-24 11:55] LABS: INR-International Normal Ratio 1.7; Prothrombin Time 19.8 SEC (12.0-14.7)
== END 2017-03-24 11:27 | disposition home or self-care (01) ==
LOC: MADLABBHPM 11:26
PROVIDERS: ATTEND Family Medicine
DX: I34.0 Nonrheumatic mitral (valve) insufficiency (principal)
CPT/HCPCS: 36415; 85610

== ENCOUNTER 2017-04-03 12:02 | Outpatient (CLI) | payer MEDICARE ==
[2017-04-03 12:26] LABS: INR-International Normal Ratio 1.5; Prothrombin Time 18.4 SEC (12.0-14.7)
== END 2017-04-03 12:03 | disposition home or self-care (01) ==
LOC: MADLABBHPM 12:02
PROVIDERS: ATTEND Family Medicine
DX: I34.0 Nonrheumatic mitral (valve) insufficiency (principal)
CPT/HCPCS: 36415; 85610

== ENCOUNTER 2017-04-07 10:47 | Outpatient (CLI) | payer MEDICARE ==
[2017-04-07 11:07] LABS: INR-International Normal Ratio 1.8; Prothrombin Time 20.8 SEC (12.0-14.7)
== END 2017-04-07 10:48 | disposition home or self-care (01) ==
LOC: MADLABBHPM 10:47
PROVIDERS: ATTEND Family Medicine
DX: I34.0 Nonrheumatic mitral (valve) insufficiency (principal)
CPT/HCPCS: 36415; 85610

== ENCOUNTER 2017-04-15 09:58 | Outpatient (CLI) | payer MEDICARE, OTHER ==
[2017-04-15 10:41] LABS: INR-International Normal Ratio 1.6; Prothrombin Time 19.6 SEC (12.0-14.7)
[2017-04-15 10:50] LABS: #Eosinphils 0.3 thou/uL (0.0-0.7); #Lymphocytes 1.3 thou/uL (1.20-3.40); #Monocytes 0.4 thou/uL (0.11-0.59); #Neutrophils 3.8 thou/uL (1.40-6.50); %Basophils 0.8 % (0.0-1.0); %Eosinophils 5.3 % (0.0-10.0); %Lymphocytes 21.5 % (21.0-51.0); %Monocytes 6.7 % (0.0-10.0); %Neutrophils 65.7 % (42.0-75.0); Anion Gap 12 mmol/L (10-20); BUN (Urea Nitrogen) 25 mg/dL (8.4-25.7); Calc. Creatinine Clearance 0 mL/min (70-130); Carbon Dioxide 25 mmol/L (23-31); Chloride 109 mmol/L (98-107); Estimated GFR-MDRD 62; Glucose 109 mg/dL (83-110); Hemoglobin 11.5 g/dL (14.0-18.0); Mean Corpuscular HGB CONC 31.9 g/dL (32.0-36.0); Mean Corpuscular Hemoglobin 27.7 pg (27.0-31.0); Mean Corpuscular Volume 86.7 fl (80.0-94.0); Mean Platelet Volume 7.5 fL (7.4-10.4); Platelet Count 234 thou/uL (130-400); Potassium 4.6 mmol/L (3.5-5.1); RBC Distribution Width 13.6 % (11.5-14.5); Red Blood Cell (RBC) Count 4.14 mill/uL (4.70-6.10); Sodium 141 mmol/L (136-145); White Blood Cell (WBC) Count 5.8 thou/uL (4.8-10.8)
== END 2017-04-15 09:59 | disposition home or self-care (01) ==
LOC: MADLABBHPM 09:58
PROVIDERS: ATTEND Family Medicine
DX: I25.10 Atherosclerotic heart disease of native coronary artery without angina pectoris (principal)
CPT/HCPCS: 36415; 80048; 85025; 85610

== ENCOUNTER 2017-04-22 10:08 | Outpatient (CLI) | payer MEDICARE ==
[2017-04-22 10:37] LABS: INR-International Normal Ratio 1.4; Prothrombin Time 17.8 SEC (12.0-14.7)
== END 2017-04-22 10:09 | disposition home or self-care (01) ==
LOC: MADLABBHPM 10:08
PROVIDERS: ATTEND Family Medicine
DX: Z51.81 Encounter for therapeutic drug level monitoring (principal); I34.0 Nonrheumatic mitral (valve) insufficiency; Z79.01 Long term (current) use of anticoagulants
CPT/HCPCS: 36415; 85610

== ENCOUNTER 2017-04-28 10:06 | Outpatient (CLI) | payer MEDICARE ==
[2017-04-28 10:57] LABS: INR-International Normal Ratio 2.3; Prothrombin Time 25.4 SEC (12.0-14.7)
== END 2017-04-28 10:07 | disposition home or self-care (01) ==
LOC: MADLABBHPM 10:06
PROVIDERS: ATTEND Family Medicine
DX: I34.0 Nonrheumatic mitral (valve) insufficiency (principal)
CPT/HCPCS: 36415; 85610

== ENCOUNTER 2017-05-12 10:39 | Outpatient (CLI) | payer MEDICARE ==
[2017-05-12 11:05] LABS: INR-International Normal Ratio 2.2; Prothrombin Time 25.4 SEC (12.0-14.7)
== END 2017-05-12 10:40 | disposition home or self-care (01) ==
LOC: MADLABBHPM 10:39
PROVIDERS: ATTEND Family Medicine
DX: I34.0 Nonrheumatic mitral (valve) insufficiency (principal)
CPT/HCPCS: 36415; 85610